=== PATIENT | female | born 1995 | race Caucasian/White ===

== ENCOUNTER 2022-08-06 10:44 | Emergency (ER) | payer OTHER ==
[~2022-08-06] VITALS: Ht 154.9 cm; Wt 73.5 kg
[2022-08-06] MEDS ORDERED: IBUPROFEN 800 MG TAB PO SCH (11:37)
[2022-08-06] MEDS ORDERED: OSEL75 PO (12:01)
[2022-08-06 12:53] VITALS: BP 122/79
== END 2022-08-06 12:56 | disposition home or self-care (01) ==
LOC: EDH 10:44
DX: J10.1 Influenza due to other identified influenza virus with other respiratory manifestations (principal); Z20.822 Contact with and (suspected) exposure to COVID-19; J45.909 Unspecified asthma, uncomplicated
CPT/HCPCS: 99283; 87635; 87804 ×2; C9803